=== PATIENT | female | born 1950 | race Caucasian/White ===

== ENCOUNTER 2022-08-21 07:12 | Outpatient (CLI) | payer OTHER ==
[2022-08-21] MEDS ORDERED: DIATR MEGLU/DIATRIZ SOD 30 ML SOLUTION PO ONE (07:38)
== END 2022-08-21 17:34 | disposition home or self-care (01) ==
LOC: SCT 07:12
PROVIDERS: ATTEND Colon & Rectal Surgery
DX: K57.30 Diverticulosis of large intestine without perforation or abscess without bleeding (principal); K76.0 Fatty (change of) liver, not elsewhere classified; R60.0 Localized edema; L02.211 Cutaneous abscess of abdominal wall
CPT/HCPCS: 76376; Q9964; Q9967

== ENCOUNTER 2022-09-06 12:05 | Day surgery (SDC) | payer OTHER ==
[~2022-09-06] VITALS: Ht 157.5 cm; Wt 88.5 kg
[~2022-09-06 12:05] MED LIST: CEFAZOLIN SOD 1 GM in D5W 50 ML IV ONE
[2022-09-06] MEDS ORDERED: fentaNYL CITRATE 250 MCG/5 ML AMP IV ONE (14:55)
[2022-09-06] MEDS ORDERED: MIDAZOLAM HCL 5 MG/5 ML VIAL IVP ONE (14:55)
[2022-09-06] MEDS ORDERED: BUPIVACAINE /PF 0.5% 30 ML VIAL INJ ONE (14:55)
[2022-09-06] MEDS ORDERED: LR 1,000 ML IV.SOLN IV ONE (14:55)
[2022-09-06] MEDS ORDERED: SEVOFLURANE 15 MIN GAS INH ONE (14:55)
[2022-09-06] MEDS ORDERED: PROPOFOL 200MG/ 20ML VIAL (DIPRIVAN) IV ONE (14:55)
[2022-09-06] MEDS ORDERED: NS IRRIG SOLN 1000 ML IR ONE (14:55)
[2022-09-06] MEDS ORDERED: METOCLOPRAMIDE HCL 10 MG/2 ML VIAL IVP PRN (15:30)
[2022-09-06] MEDS ORDERED: ONDANSETRON HCL 4 MG/2 ML VIAL IVP PRN (15:30)
[2022-09-06] MEDS ORDERED: fentaNYL CITRATE/PF 100 MCG/2 ML AMP IVP PRN ×2 (15:30)
[2022-09-06] MEDS ORDERED: D5/0.45 NS 1,000 ML IV SCH (15:45)
[2022-09-06] MEDS ORDERED: HYDROcodone/ACETAMIN 5-325 MG TAB (NORCO/ VICODIN) PO PRN ×2 (15:45)
[2022-09-06] MEDS ORDERED: fentaNYL CITRATE/PF 100 MCG/2 ML AMP ONE (16:12)
[2022-09-06 18:24] VITALS: BP_SYST 150
== END 2022-09-06 17:35 | disposition home or self-care (01) ==
LOC: SDS 12:05 → SMU 12:06 → EDSTATUS 14:00 → SDS 17:35
PROVIDERS: ATTEND Colon & Rectal Surgery
DX: L02.211 Cutaneous abscess of abdominal wall (principal); I10 Essential (primary) hypertension; E11.9 Type 2 diabetes mellitus without complications; Z91.040 Latex allergy status; E78.5 Hyperlipidemia, unspecified; Z20.822 Contact with and (suspected) exposure to COVID-19; Z79.899 Other long term (current) drug therapy
CPT/HCPCS: 36415 ×2; 11005; 82962; 87081; 88304; 87426; U0003; J3490; J0690; J2250; J2704; J3010 ×2; J7060; J7120